=== PATIENT | female | born 1985 ===

== ENCOUNTER 2017-09-21 16:30 | Emergency (ER) | payer OTHER ==
[2017-09-21 16:40] VITALS: BMI 25.1
[2017-09-21 16:43] VITALS: BP 108/72; PULSE 77; RESP 17; TEMP 98.9; O2SAT 96
[2017-09-21 17:36] LABS: URINE BILIRUBIN NEGATIVE (NEGATIVE); URINE BLOOD LARGE (NEGATIVE); URINE GLUCOSE (UA) NEGATIVE (NEGATIVE); URINE KETONE NEGATIVE (NEGATIVE); URINE LEUKOCYTE ESTERASE SMALL Leu/uL (NEGATIVE); URINE PROTEIN NEGATIVE mg/dL (<30 mg/dL); URINE UROBILINOGEN 0.2 E.U./dL (<1 E.U./dL)
[2017-09-21 17:39] LABS: URINE APPEARANCE CLEAR (CLEAR); URINE COLOR YELLOW (YELLOW)
--- NOTE | 2017-09-21 17:51 | ED PDOC ---
Arrival/HPI - General Chief Complaint: Abdominal Pain Time Seen by Provider: 09/21/17 16:49 Historian: Patient - History of Present Illness Narrative History of Present Illness (Text): 09/21/17 17:57 32 year old female, whose and had a positive test 2 weeks ago, presents to the emergency department complaining of vaginal bleeding with pain for 2 days. Patient reports she started vaginal bleeding on Friday and went to [facility]. She had blood work and an ultrasound done which diagnosed her with threatened miscarriage with discharge papers. Her blood work results from [facility] showed Hgb: 12, Hct: 37, Beta Quant: 172, and type and screen showed that she's O positive. Patient's Ultrasound from [facility] showed no IUP. She reports she is not getting any care. Patient denies any fever, chills, chest pain, shortness of breath, nausea, vomiting, diarrhea, urinary symptoms, back pain, neck pain, headache, dizziness, or any other complaints. PMD: Dr. Devi Time/Duration: Other (2 days ago) Symptom Onset: Gradual Symptom Course: Unchanged Activities at Onset: Light Context: Home Past Medical History - Provider Review Nursing Documentation Reviewed: Yes - Infectious Disease Hx of Infectious Diseases: None - Tetanus Immunization Tetanus Immunization: Unknown - Past Medical History Past Medical History: No Previous - Cardiac Hx Cardiac Disorders: No - Pulmonary Hx Respiratory Disorders: No - Neurological Hx Neurological Disorder: No - HEENT Hx HEENT Disorder: No - Renal Hx Renal Disorder: Yes Hx Kidney Stones: Yes - Endocrine/Metabolic Hx Endocrine Disorders: No - Hematological/Oncological Hx Blood Disorders: No - Integumentary Hx Dermatological Disorder: No - Musculoskeletal/Rheumatological Hx Musculoskeletal Disorders: No - Gastrointestinal Hx Gastrointestinal Disorders: No - Genitourinary/Gynecological Hx Genitourinary Disorders: No - Psychiatric Hx Psychophysiologic Disorder: No Hx Anxiety: No Hx Bipolar Disorder: No Hx Depression: No Hx Emotional Abuse: No Hx Hallucinations: No Hx Panic Disorder: No Hx Post Traumatic Stress Disorder: No Hx Psychosis: No Hx Physical Abuse: No Hx Schizophrenia: No Hx Sexual Abuse: No Hx Substance Use: No - Surgical History Hx Section: Yes Other/Comment: bartholin's cyst removal - Anesthesia Hx Anesthesia: Yes Hx Anesthesia Reactions: No Hx Malignant Hyperthermia: No - Suicidal Assessment Feels Threatened In Home Enviroment: No Family/Social History - Physician Review Nursing Documentation Reviewed: Yes Family/Social History: No Known Family HX Smoking Status: Never Smoked Hx Alcohol Use: No Hx Substance Use: No Hx Substance Use Treatment: No Allergies/Home Meds Allergies/Adverse Reactions: Allergies No Known Allergies Allergy (Verified 09/21/17 16:40) Review of Systems - Physician Review All systems were reviewed & negative as marked: Yes - Review of Systems Constitutional: absent: Fevers, Other (Chills) Respiratory: absent: SOB Cardiovascular: absent: Chest Pain Gastrointestinal: absent: Diarrhea, Nausea, Vomiting Genitourinary Female: Vaginal Bleeding (with pain ). absent: Dysuria, Frequency , Hematuria Musculoskeletal: absent: Back Pain, Neck Pain Neurological: absent: Headache, Dizziness Physical Exam Vital Signs Reviewed: Yes Vital Signs Temp Pulse Resp BP Pulse Ox 09/21/17 16:40 98.9 F 77 17 108/72 96 09/21/17 16:31 98.9 F 77 17 108/72 98 Temperature: Afebrile Blood Pressure: Normal Pulse: Regular Respiratory Rate: Normal Appearance: Positive for: Well-Appearing, Non-Toxic, Comfortable Pain Distress: Mild Mental Status: Positive for: Alert and Oriented X 3 - Systems Exam Head: Present: Atraumatic, Normocephalic Pupils: Present: PERRL Extroacular Muscles: Present: EOMI Conjunctiva: Present: Normal Mouth: Present: Moist Mucous Membranes Neck: Present: Normal Range of Motion Respiratory/Chest: Present: Clear to Auscultation, Good Air Exchange. No: Respiratory Distress, Accessory Muscle Use Cardiovascular: Present: Regular Rate and Rhythm, Normal S1, S2. No: Murmurs Abdomen: Present: Tenderness (Mild suprapubic tenderness), Normal Bowel Sounds. No: Distention, Peritoneal Signs Genitourinary/Pelvic Exam: Present: Normal External Genitalia, Vaginal Bleeding , Other (Female RN was present during the entire exam). No: Adenexal Tenderness (Mild vaginal bleeding from open cervical os), Adenexal Mass, Cervical Motion Tendernes Back: Present: Normal Inspection Upper Extremity: Present: Normal Inspection. No: Cyanosis, Edema Lower Extremity: Present: Normal Inspection. No: Edema Neurological: Present: GCS=15, CN II-XII Intact, Speech Normal Skin: Present: Warm, Dry, Normal Color. No: Rashes Psychiatric: Present: Alert, Oriented x 3, Normal Insight, Normal Concentration Medical Decision Making ED Course and Treatment: 09/21/17 17:57 Impression: 41 year old female, whose , presents complaining of vaginal bleeding and pain for the past 2 days. Patient was recently evaluated at [facility]. Plan: -- Labs -- Tylenol -- Rocephin -- Urine Culture -- Urinalysis and Urinalysis W/ Micro -- Reassess and disposition Prior Visits: Notes and results from previous visits were reviewed. On 07/17/15 patient came in complaining of right flank pain associated with dysuria, nausea, and episode of vomiting. Patient was admitted. Progress Notes: Laboratory results reviewed, hemoglobin and hematocrit is stable at 13 / 39, beta quant 70, UA shows evidence of UTI. Rocephin 1 g IV ordered. On reevaluation, patient is sitting up comfortably in bed in no acute distress, offers no additional complaints, reports no significant increase in vaginal bleeding at this time. Abdomen remains soft, no tenderness, no guarding, no CVA tenderness. Diagnostic results discussed with the patient in great detail. Based on history, exam and diagnostic results, plan will be for outpatient follow-up. Diagnosis of miscarriage discussed the patient in great detail based on history, exam and diagnostic results. Instructed to follow up with pattern maker programer in 1-2 days without fail. Advised to take medication as prescribed. Return to the emergency room at any time for any new or worsening symptoms. Patient states she fully agrees with and understands discharge instructions. States that she agrees with the plan and disposition. Verbalized and repeated discharge instructions and plan. I have given the patient opportunity to ask any additional questions. - Lab Interpretations Lab Results: 09/21/17 17:55 09/21/17 17:55 Lab Results 09/21/17 17:55: Beta HCG, Quant 70.78 H 09/21/17 17:55: Sodium 138, Potassium 4.0, Chloride 105, Carbon Dioxide 23, Anion Gap 14, BUN 7, Creatinine 0.5 L, Est GFR ( Amer) > 60, Est GFR (Non -Af Amer) > 60, Random Glucose 82, Calcium 9.1, Total Bilirubin 0.5, AST 39 H, ALT 62 H, Alkaline Phosphatase 90, Total Protein 7.2, Albumin 4.4, Globulin 2.8 , Albumin/Globulin Ratio 1.6 09/21/17 17:55: WBC 8.0 D, RBC 4.71, Hgb 13.5, Hct 39.7, MCV 84.3, MCH 28.7, MCHC 34.0, RDW 13.1, Plt Count 254, MPV 10.8, Gran % 64.4, Lymph % (Auto) 22.9, [place] % (Auto) 7.7 H, Eos % (Auto) 4.6, Baso % (Auto) 0.4, Gran # 5.18, Lymph # 1.8, [place] # 0.6, Eos # 0.4, Baso # 0.03 09/21/17 17:20: Urine Color Yellow, Urine Appearance Clear, Urine pH 6.0, Ur Specific Curtis 1.025, Urine Protein Negative, Urine Glucose (UA) Negative, Urine Ketones Negative, Urine Blood Large H, Urine Nitrate Negative, Urine Bilirubin Negative, Urine Urobilinogen 0.2, Ur Leukocyte Esterase Small H, Urine RBC 1 - 3, Urine WBC 15 - 20, Ur Epithelial Cells 0 - 2, Urine Bacteria Small I have reviewed the lab results: Yes - Medication Orders Current Medication Orders: Discontinued Medications Acetaminophen (Tylenol 325mg Tab) 650 mg PO STAT STA Stop: 09/21/17 17:18 Last Admin: 09/21/17 17:31 Dose: 650 mg [facility] Pain/Vitals Document 09/21/17 17:31 (Rec: 09/21/17 17:32 [id number]) Pain Reassessment Is This A Pain ReAssessment? Yes Sleep Is patient sleeping during reassessment? No Presence of Pain Presence of Pain Yes Pain Scale Used Pain Scale Used Numeric Location Pain Location Body Site Abdomen Description Constant Intensity 8 Scale Used Numeric Pain Behavior Guarding Rubbing Site Restlessness Facial Grimacing Aggravating Factors Contant Re-Assess: [facility] Pain/Vitals Document 09/21/17 18:31 (Rec: 09/21/17 19:36 [id number]) Pain Reassessment Is This A Pain ReAssessment? Yes Sleep Is patient sleeping during reassessment? No Presence of Pain Presence of Pain Yes Pain Scale Used Pain Scale Used Numeric Location Pain Location Body Site Abdomen Description Constant Intensity 3 Scale Used Numeric Pain Behavior Guarding Alleviating Factors Medication Ceftriaxone Sodium (Rocephin 1 Gram Ivpb) 1 g in 100 mls @ 200 mls/hr IVPB STAT STA PRN Reason: Protocol Stop: 09/21/17 18:56 Last Admin: 09/21/17 19:35 Dose: 200 mls/hr eMAR Start Stop Document 09/21/17 19:35 RG (Rec: 09/21/17 19:35 RG [id number]) Intravenous Solution Start Date 09/21/17 Start Time 19:35 - PA / [employer]LECT[employer]GAN [employer]IC / Resident Statement MD/DO has reviewed & agrees with the documentation as recorded. - Scribe Statement The provider has reviewed the documentation as recorded by the Scribe Nancy Tilley All medical record entries made by the Scribe were at my direction and personally dictated by me. I have reviewed the chart and agree that the record accurately reflects my personal performance of the history, physical exam, medical decision making, and the department course for this patient. I have also personally directed, reviewed, and agree with the discharge instructions and disposition. Disposition/Present on Arrival - Present on Arrival Any Indicators Present on Arrival: No History of DVT/PE: No History of Uncontrolled Diabetes: No Urinary Catheter: No History of Decub. Ulcer: No History Surgical Site Infection Following: None - Disposition Have Diagnosis and Disposition been Completed?: Yes Diagnosis: Abdominal pain, Miscarriage Disposition: HOME/ ROUTINE Disposition Time: 19:38 Patient Plan: Discharge Patient Problems: Current Active Problems Problem Status Onset Abdominal pain Acute Miscarriage Acute Condition: STABLE Discharge Instructions (ExitCare): Spontaneous Miscarriage (ED) Print Language: KENYAN Additional Instructions: Thank you for letting us take care of you today. You were treated for abdominal pain, miscarriage, UTI. The emergency medical care you received today was directed at your acute symptoms. If you were prescribed any medication, please fill it and take as directed. It may take several days for your symptoms to resolve. Return to the Emergency Department if your symptoms worsen, do not improve, or if you have any other problems. Please contact your pattern maker programer doctor in 2 days for re-evaluation and follow up. Bring any paperwork you were given at discharge with you along with any medications you are taking to your follow up visit. Our treatment cannot replace ongoing medical care by a primary care provider (PCP) outside of the emergency department. Thank you for allowing the [facility] team to be part of your care today. Prescriptions: Nitrofurantoin Macrocrystals [Macrobid] 100 mg PO BID #20 cap Referrals: Lis Devi, [Primary Care Provider] - Follow up with primary Forms: [employer] (French), WORK NOTE
[2017-09-21 18:15] LABS: BASO # 0.03 K/mm3 (0.0-2.0); BASO % 0.4 % (0.0-3.0); EOS # 0.4 (0.0-0.7); EOS % 4.6 % (1.5-5.0); GRAN # 5.18 (1.4-6.5); GRAN % 64.4 % (50.0-68.0); HEMATOCRIT 39.7 % (36.0-48.0); LYMPH # 1.8 (1.2-3.4); LYMPH % 22.9 % (22.0-35.0); MEAN CELL VOLUME 84.3 fl (80.0-105.0); MEAN CORPUSCULAR HEMOGLOBIN 28.7 pg (25.0-35.0); MEAN PLATELET VOLUME 10.8 fl (7.0-11.0); MONO # 0.6 (0.1-0.6); MONO % 7.7 % (1.0-6.0); RED CELL DISTRIBUTION WIDTH 13.1 % (11.5-14.5)
[2017-09-21 18:16] LABS: URINE BACTERIA SMALL (NEG); URINE EPITHELIAL CELLS 0 - 2 /hpf (0-5); URINE WBC 15 - 20 /hpf (0-6)
[2017-09-21 18:26] LABS: ALB/GLOB RATIO 1.6 (1.1-1.8); ALKALINE PHOSPHATASE 90 U/L (38-126); ALT/SGPT 62 U/L (7-56); AST/SGOT 39 U/L (14-36); BILIRUBIN,TOTAL 0.5 mg/dL (0.2-1.3); BLOOD UREA NITROGEN 7 mg/dL (7-21); CALCIUM 9.1 mg/dL (8.4-10.5); CARBON DIOXIDE 23 mmol/L (21-33); CHLORIDE 105 mmol/L (98-107); GFR AFRICAN-AMERICAN > 60; GLUCOSE,RANDOM 82 mg/dL (70-110); SODIUM 138 mmol/L (132-148); TOTAL PROTEIN 7.2 g/dL (5.8-8.3)
[2017-09-21] MEDS ORDERED: cefTRIAXone 1 gm 1 G/100 ML BAG IVPB STA (18:27)
== END 2017-09-21 20:05 | disposition home or self-care (01) ==
LOC: ED 16:30
DX: O03.9 Complete or unspecified spontaneous abortion without complication (principal); R10.9 Unspecified abdominal pain
CPT/HCPCS: 80053; 81001; 84702; 85025; 87086; 96365; 99283; J0696

== ENCOUNTER 2018-07-11 13:14 | Emergency (ER) | payer OTHER ==
[2018-07-11 13:29] VITALS: BMI 27.8
[2018-07-11] MEDS ORDERED: Sodium Chloride 0.9% 1,000 ML IV STA (13:58)
[2018-07-11 14:24] LABS: BASO # 0.02 K/mm3 (0.0-2.0); BASO % 0.2 % (0.0-3.0); EOS # 0.3 (0.0-0.7); EOS % 2.9 % (1.5-5.0); GRAN # 6.56 (1.4-6.5); GRAN % 71.6 % (50.0-68.0); HEMOGLOBIN 10.3 g/dL (12.0-16.0); LYMPH # 1.6 (1.2-3.4); LYMPH % 17.4 % (22.0-35.0); MEAN CELL VOLUME 82.1 fl (80.0-105.0); MEAN CORPUSCULAR HEMOGLOBIN 28.3 pg (25.0-35.0); MEAN CORPUSCULAR HGB CONC 34.4 g/dl (31.0-37.0); MEAN PLATELET VOLUME 10.8 fl (7.0-11.0); MONO # 0.7 (0.1-0.6); MONO % 7.9 % (1.0-6.0); RBC 3.64 10^6/uL (3.5-6.1); RED CELL DISTRIBUTION WIDTH 12.6 % (11.5-14.5); WHITE BLOOD COUNT 9.2 10^3/ul (4.5-11.0)
[2018-07-11 14:27] LABS: ALB/GLOB RATIO 1.2 (1.1-1.8); ALBUMIN 3.4 g/dL (3.0-4.8); ALT/SGPT 26 U/L (7-56); AST/SGOT 20 U/L (14-36); BLOOD UREA NITROGEN 7 mg/dL (7-21); GFR AFRICAN-AMERICAN > 60; GFR NON-AFRICAN AMERICAN > 60; LIPASE 41 U/L (23-300)
--- NOTE | 2018-07-11 14:51 | ED PDOC ---
Arrival/HPI - General Chief Complaint: Shortness Of Breath Time Seen by Provider: 07/11/18 13:36 Historian: Patient - History of Present Illness Narrative History of Present Illness (Text): 07/11/18 13:58 33 year old female, , currently 28 weeks , presents to the Emergency Department accompanied by family via EMS s/p syncopal episode prior to arrival. Patient states she was in the car with family, on her way to [place] , when she suddenly experienced dizziness, diaphoresis, shortness of breath and chest tightness leading up to the syncopal episode. Patient denies similar episodes in the past but informs intermittent shortness of breath throughout the whenever she puts on a tight sports bra. Patient states she has been recently experiencing pressure like chest tightness associated with difficulty breathing secondary to tight sports bra. Patient informs compliance with diet and denies any recent changes in appetite. As per patient, there was no environmental or social stressor prior to the episode. Patient denies any urinary incontinence, tongue biting or any seizure like activity following the episode. Patient denies any fever, chills, nausea, vomiting, diarrhea, constipation, diarrhea, abdominal pain, cough, vaginal discharge, hemoptosis, hematochezia, or any other complaints. Patient denies any history of blood clots, surgery or cancer. No unilateral leg swelling. No hormone therapy. Patient informs her estimated delivery date is on 10/01/18. [place], [facility] [place]/11/18 17:20 Time/Duration: Prior to Arrival Symptom Onset: Sudden Symptom Course: Improving Activities at Onset: Light Context: Passenger Past Medical History - Provider Review Nursing Documentation Reviewed: Yes - Infectious Disease Hx of Infectious Diseases: None - Tetanus Immunization Tetanus Immunization: Unknown - Past Medical History Past Medical History: No Previous - Cardiac Hx Cardiac Disorders: Yes Hx Heart Murmur: Yes - Pulmonary Hx Respiratory Disorders: No - Neurological Hx Neurological Disorder: No - HEENT Hx HEENT Disorder: No - Renal Hx Renal Disorder: Yes Hx Kidney Stones: Yes Other/Comment: UTI - Endocrine/Metabolic Hx Endocrine Disorders: No - Hematological/Oncological Hx Blood Disorders: No - Integumentary Hx Dermatological Disorder: No - Musculoskeletal/Rheumatological Hx Musculoskeletal Disorders: No - Gastrointestinal Hx Gastrointestinal Disorders: No - Genitourinary/Gynecological Hx Genitourinary Disorders: No Hx Urinary Tract Infection: Yes - Psychiatric Hx Psychophysiologic Disorder: No Hx Anxiety: No Hx Bipolar Disorder: No Hx Depression: No Hx Emotional Abuse: No Hx Hallucinations: No Hx Panic Disorder: No Hx Post Traumatic Stress Disorder: No Hx Psychosis: No Hx Physical Abuse: No Hx Schizophrenia: No Hx Sexual Abuse: No Hx Substance Use: No - Surgical History Hx Section: Yes Other/Comment: bartholin's cyst removal - Anesthesia Hx Anesthesia: Yes Hx Anesthesia Reactions: No Hx Malignant Hyperthermia: No - Suicidal Assessment Feels Threatened In Home Enviroment: No Family/Social History - Physician Review Nursing Documentation Reviewed: Yes Family/Social History: No Known Family HX Smoking Status: Never Smoked Hx Alcohol Use: No Hx Substance Use: No Hx Substance Use Treatment: No Allergies/Home Meds Allergies/Adverse Reactions: Allergies No Known Allergies Allergy (Verified 07/11/18 13:35) Home Medications: Home Meds Medication Instructions Recorded Confirmed Pnv No.95/Ferrous Fum/Folic AC 1 each PO DAILY 07/11/18 07/11/18 [ Vitamins Tablet] Review of Systems - Physician Review All systems were reviewed & negative as marked: Yes - Review of Systems Constitutional: absent: Fevers Respiratory: SOB. absent: Cough Cardiovascular: Chest Pain ("chest tightness") Gastrointestinal: absent: Abdominal Pain, Constipation, Diarrhea, Nausea, Vomiting, Appetite Changes, Hematochezia Genitourinary Female: absent: Vaginal Discharge Neurological: Dizziness Endocrine: Diaphoresis Physical Exam Vital Signs Reviewed: Yes Vital Signs Temp Pulse Resp BP Pulse Ox 07/11/18 16:20 98.5 F 75 16 108/64 99 07/11/18 16:18 98.5 F 75 16 108/64 99 07/11/18 15:22 68 18 104/47 L 97 07/11/18 13:42 20 07/11/18 13:29 97.8 F 74 22 107/66 100 07/11/18 13:15 98 F 75 20 107/66 97 Temperature: Afebrile Blood Pressure: Normal Pulse: Regular Respiratory Rate: Normal Appearance: Positive for: Well-Appearing, Non-Toxic, Comfortable Pain Distress: None Mental Status: Positive for: Alert and Oriented X 3 Finger Stick Blood Glucose: 86 - Systems Exam Head: Present: Atraumatic, Normocephalic Pupils: Present: PERRL Extroacular Muscles: Present: EOMI Conjunctiva: Present: Normal Neck: Present: Normal Range of Motion Respiratory/Chest: Present: Clear to Auscultation, Good Air Exchange. No: Respiratory Distress, Accessory Muscle Use Cardiovascular: Present: Regular Rate and Rhythm, Normal S1, S2. No: Murmurs Abdomen: No: Tenderness, Distention, Peritoneal Signs Back: Present: Normal Inspection. No: CVA Tenderness Upper Extremity: Present: Normal Inspection. No: Cyanosis, Edema Lower Extremity: Present: Normal Inspection. No: Edema Neurological: Present: GCS=15, CN II-XII Intact, Speech Normal, Motor Func Grossly Intact, Memory Normal Skin: Present: Warm, Dry, Normal Color. No: Rashes Psychiatric: Present: Alert, Oriented x 3, Normal Insight, Normal Concentration Medical Decision Making ED Course and Treatment: 07/11/18 13:58 Impression: 33 year old female presents to the Emergency Department for medical evaluation s/p syncopal episode. Witnessed by , no seizure like activity. Likely vasovagal associated w/ tight garment. Pt notes that her breast and abdomen have gotten bigger with and states that when she removed her bra she felt immediately better, without SOB or any other symptoms. No vaginal d/c. No trauma. Differential Diagnosis included but are not limited to: Syncope Plan: -- EKG -- Labs -- IV fluids -- UA -- Transvaginal US -- Reassess and disposition Prior Visits: Notes and results from previous visits were reviewed. Progress Notes: 07/11/18 13:58 EKG: Ordered, reviewed, and independently interpreted the EKG. Rate : 77 BPM Rhythm : NSR Interpretation : No ST-segment elevations or depressions, no T-wave inversions, normal intervals. Low Pretest wells: PERC negative. No indication for CT 1620 Labs w/ UTI- will rx and have pt followup w/ obgyn Pt notes improvement. and is stable for home. - Lab Interpretations Lab Results: 07/11/18 14:00 07/11/18 14:00 Lab Results 07/11/18 15:30: Urine Color Light yellow, Urine Appearance Clear, Urine pH 8.0, Ur Specific [place] 1.015, Urine Protein 30 H, Urine Glucose (UA) Negative, Urine Ketones Negative, Urine Blood Negative, Urine Nitrate Negative, Urine Bilirubin Negative, Urine Urobilinogen 0.2, Ur Leukocyte Esterase Small H, Urine RBC 1 - 3, Urine WBC 5 - 10, Ur Epithelial Cells 4 - 5, Amorphous Sediment Few, Urine Bacteria Many, Urine Other Uyeast 07/11/18 14:00: Beta HCG, Quant 46635.00 H 07/11/18 14:00: Sodium 136, Potassium 4.0, Chloride 106, Carbon Dioxide 20 L, Anion Gap 13, BUN 7, Creatinine 0.5 L, Est GFR ( Amer) > 60, Est GFR (Non -Af Amer) > 60, Random Glucose 74, Calcium 9.0, Total Bilirubin 0.3, AST 20, ALT 26, Alkaline Phosphatase 106, Total Protein 6.4, Albumin 3.4, Globulin 3.0, Albumin/Globulin Ratio 1.2, Lipase 41 07/11/18 14:00: WBC 9.2, RBC 3.64, Hgb 10.3 L D, Hct 29.9 L, MCV 82.1, MCH 28.3 , MCHC 34.4, RDW 12.6, Plt Count 270, MPV 10.8, Gran % 71.6 H, Lymph % (Auto) 17.4 L, [place] % (Auto) 7.9 H, Eos % (Auto) 2.9, Baso % (Auto) 0.2, Gran # 6.56 H , Lymph # (Auto) 1.6, [place] # (Auto) 0.7 H, Eos # (Auto) 0.3, Baso # (Auto) 0.02 - RAD Interpretation Radiology Orders: 07/11/18 14:16 AGE [US] Stat - EKG Interpretation Interpreted by ED Physician: Yes Type: 12 lead EKG - Medication Orders Current Medication Orders: Discontinued Medications Sodium Chloride (Sodium Chloride 0.9%) 1,000 mls @ 333 mls/hr IV .Q3H1M STA Stop: 07/11/18 16:58 Last Admin: 07/11/18 14:22 Dose: 333 mls/hr eMAR Start Stop Document 07/11/18 14:22 SRE (Rec: 07/11/18 14:23 [id number]) Intravenous Solution Start Date 07/11/18 Start Time 14:23 End Date 07/11/18 End time 17:30 Total Infusion Time 187 - Scribe Statement The provider has reviewed the documentation as recorded by the Scribe Tasfia Rosie. All medical record entries made by the Normanibjuan pablo were at my direction and personally dictated by me. I have reviewed the chart and agree that the record accurately reflects my personal performance of the history, physical exam, medical decision making, and the department course for this patient. I have also personally directed, reviewed, and agree with the discharge instructions and disposition. Disposition/Present on Arrival - Present on Arrival Any Indicators Present on Arrival: No History of DVT/PE: No History of Uncontrolled Diabetes: No Urinary Catheter: No History of Decub. Ulcer: No History Surgical Site Infection Following: None - Disposition Have Diagnosis and Disposition been Completed?: Yes Diagnosis: UTI (urinary tract infection) during Disposition: HOME/ ROUTINE Disposition Time: 16:20 Condition: GOOD Discharge Instructions (ExitCare): Urinary Tract Infection, Adult (DC), Asymptomatic Bacteriuria Additional Instructions: BERENICE GARCIA, thank you for letting us take care of you today. Your provider was Onesimo Nair and you were treated for SOB. The emergency medical care you received today was directed at your acute symptoms. If you were prescribed any medication, please fill it and take as directed. It may take several days for your symptoms to resolve. Return to the Emergency Department if your symptoms worsen, do not improve, or if you have any other problems. Please contact your doctor or call one of the physicians/clinics you have been referred to that are listed on the Patient Visit Information form that is included in your discharge packet. Bring any paperwork you were given at discharge with you along with any medications you are taking to your follow up visit. Our treatment cannot replace ongoing medical care by a primary care provider outside of the emergency department. Thank you for allowing the [facility] team to be part of your care today. If you had an X-Ray or CT scan: A Radiologist will review the ED reading if any change in treatment is needed we will contact you. If you had a blood, urine, or wound culture: It will take several days for the results, if any change in treatment is needed we will contact you. If you had an STI test: It will take 48 hours for the results. Please call after 1 week if you have not heard back. Prescriptions: Nitrofurantoin Monohyd/M-Cryst [Nitrofurantoin Sheridan-Mcr 100 mg] 100 mg PO BID 5 Days #10 capsule Referrals: Ilia Desir MD [Non-Staff] - Follow up with primary (Or see your OBGYN) Forms: [employer] (Tajik)
[2018-07-11 16:01] LABS: URINE BILIRUBIN NEGATIVE (NEGATIVE); URINE BLOOD NEGATIVE (NEGATIVE); URINE GLUCOSE (UA) NEGATIVE (NEGATIVE); URINE LEUKOCYTE ESTERASE SMALL Leu/uL (NEGATIVE); URINE PROTEIN 30 mg/dL (<30 mg/dL); URINE UROBILINOGEN 0.2 E.U./dL (<1 E.U./dL)
[2018-07-11 16:03] LABS: URINE APPEARANCE CLEAR (CLEAR); URINE COLOR LIGHT YELLOW (YELLOW)
[2018-07-11 16:08] LABS: URINE BACTERIA MANY (NEG)
[2018-07-11 16:09] LABS: URINE AMORPHOUS SEDIMENT FEW
[2018-07-11 16:20] VITALS: BP 108/64; PULSE 75; RESP 16; TEMP 98.5; O2SAT 99
--- NOTE | 2018-07-12 16:19 | US ---
Date of service: 07/11/2018 PROCEDURE: OB Pelvic Ultrasound HISTORY: syncope, need FHR, ED US broken COMPARISON: No relevant prior imaging FINDINGS: UTERUS: Placenta: Anterior Presentation: Transverse BPD: 7.4 cm compatible with estimated gestational age of 29 weeks, 5 days HC: 20 6.8 cm compatible with estimated gestational age of 29 weeks, 2 days AC: 26.7 cm compatible with estimated gestational age of 30 weeks, 6 days FL: 5.5 cm compatible with estimated gestational age of 29 weeks, 1 day EFW: 1503 g 225 g (3 lb 5 oz 8 oz) Heart rate: 120 bpm. age (Ultrasound estimated): 29 weeks, 5 days Lia-gestational hemorrhage: None. Date of delivery (Ultrasound estimated) : 09/21/2018 CERVIX: Measures 3.6 cm. Long and closed. No cervical abnormality seen. RIGHT OVARY: Not visualized LEFT OVARY: Not visualized FREE FLUID: None. OTHER FINDINGS: None. IMPRESSION: Single live intrauterine gestation with average ultrasound age 29 weeks, 5 days. heart rate 120 beats per minute. Cervix long and closed.
--- NOTE | 2018-07-12 16:24 | CARD ---
APPROVED REPORT Date of service: 07/11/2018 EKG Measurement Heart [id number] <Conclusion> Normal sinus rhythm Normal ECG
== END 2018-07-11 16:20 | disposition home or self-care (01) ==
LOC: ED 13:14
DX: O23.43 Unspecified infection of urinary tract in pregnancy, third trimester (principal); Z3A.29 29 weeks gestation of pregnancy
CPT/HCPCS: 76815; 80053; 81001; 82948; 83690; 84702; 85025; 87086; 93005; 96360; 96361; 99284; J7030